=== PATIENT | male | born 1970 | race Caucasian/White ===

== ENCOUNTER 2022-08-22 11:26 | Emergency (ER) | payer MEDICAID, OTHER ==
[2022-08-22 12:06] LABS: #Basophils 0.1 10x3/uL (0.0-0.2); #Eosinphils 0.5 10x3/uL (0.0-0.5); #Monocytes 0.8 10x3/uL (0.0-1.1); #Neutrophils 3.4 10x3/uL (1.5-8.4); %Basophils 1.8 % (0.0-2.0); %Eosinophils 6.6 % (0.0-6.0); %Lymphocytes 33.2 % (18.0-47.0); %Monocytes 11.4 % (0.0-10.0); %Neutrophils 46.3 % (40.0-75.0); Hemoglobin 12.3 g/dL (13.5-17.5); Mean Corpuscular HGB CONC 33.7 g/dL (32.0-36.0); Mean Corpuscular Hemoglobin 31.7 pg (27.0-33.0); Mean Corpuscular Volume 94.1 fl (81.2-95.1); Mean Platelet Volume 8.5 fl (7.4-10.4); Platelet Count 243 10x3/uL (150-450); Red Blood Cell (RBC) Count 3.88 10x6/uL (4.32-5.72); White Blood Cell (WBC) Count 7.3 10x3/uL (3.5-10.5)
[2022-08-22 12:27] LABS: ALT (SGPT) 42 U/L (8-55); AST (SGOT) 25 U/L (5-34); Albumin 4.3 g/dL (3.5-5.0); Alkaline Phosphatase 101 U/L (40-110); Anion Gap 13 mmol/L (10-20); BUN (Urea Nitrogen) 12 mg/dL (8.4-25.7); Bilirubin, Total 0.3 mg/dL (0.2-1.2); Calc. Creatinine Clearance 0 mL/min (70-130); Calcium 9.6 mg/dL (7.8-10.44); Carbon Dioxide 25 mmol/L (22-29); Chloride 99 mmol/L (98-107); Estimated GFR 91; Globulin 3.2 g/dL (2.4-3.5); Glucose 145 mg/dL (70-105); Lipase 36 U/L (8-78); Potassium 4.2 mmol/L (3.5-5.1); Protein, Total 7.5 g/dL (6.0-8.3); Sodium 133 mmol/L (136-145)
== END 2022-08-22 14:48 | disposition home or self-care (01) ==
LOC: CSHERS 11:26
DX: K59.00 Constipation, unspecified (principal); I73.9 Peripheral vascular disease, unspecified; I10 Essential (primary) hypertension; Z86.73 Personal history of transient ischemic attack (TIA), and cerebral infarction without residual deficits; Z87.891 Personal history of nicotine dependence; Z79.899 Other long term (current) drug therapy; Z79.82 Long term (current) use of aspirin
CPT/HCPCS: 71045; 74177; 80053; 83690; 85025

== ENCOUNTER 2022-11-28 07:05 | Day surgery (SDC) | payer OTHER ==
[2022-11-27 10:57] VITALS: BMI 30.8
[2022-11-28] MEDS ORDERED: PROPOFOL 40 ML ONE (09:00)
[2022-11-28] MEDS ORDERED: Lidocaine 1% PF 5 ML VIAL ONE (09:00)
[2022-11-28] MEDS ORDERED: PROPOFOL 20 ML ONE (09:35)
== END 2022-11-28 11:01 | disposition home or self-care (01) ==
LOC: CSHSDC 07:05
PROVIDERS: ATTEND Internal Medicine Gastroenterology
PROC: 0DBP8ZZ Excision of Rectum, Via Natural or Artificial Opening Endoscopic (ICD-10-PCS; principal; 2022-11-28)
PROC: 0DBN8ZX Excision of Sigmoid Colon, Via Natural or Artificial Opening Endoscopic, Diagnostic (ICD-10-PCS; principal; 2022-11-28)
DX: K63.5 Polyp of colon (principal); K59.00 Constipation, unspecified; K63.3 Ulcer of intestine; F17.210 Nicotine dependence, cigarettes, uncomplicated; I10 Essential (primary) hypertension; E11.9 Type 2 diabetes mellitus without complications; E78.5 Hyperlipidemia, unspecified; Z90.49 Acquired absence of other specified parts of digestive tract; Z88.0 Allergy status to penicillin; Z79.899 Other long term (current) drug therapy; Z87.891 Personal history of nicotine dependence
CPT/HCPCS: 88305; J2704

== ENCOUNTER 2022-12-03 13:15 | Outpatient (CLI) | payer OTHER | END 2022-12-03 13:16 | disposition home or self-care (01) | LOC: CSHWCC 13:15 | PROVIDERS: ATTEND Nurse Practitioner Family | DX: I87.312 Chronic venous hypertension (idiopathic) with ulcer of left lower extremity (principal); L97.822 Non-pressure chronic ulcer of other part of left lower leg with fat layer exposed; R60.0 Localized edema | CPT/HCPCS: 87070; 87077; 87186; 87205; 97597; 99203; G0463 ==

== ENCOUNTER 2022-12-17 13:35 | Outpatient (CLI) | payer OTHER | END 2022-12-17 13:36 | disposition home or self-care (01) | LOC: CSHWCC 13:35 | PROVIDERS: ATTEND Nurse Practitioner Family | DX: R60.0 Localized edema (principal); I87.312 Chronic venous hypertension (idiopathic) with ulcer of left lower extremity; L97.822 Non-pressure chronic ulcer of other part of left lower leg with fat layer exposed | CPT/HCPCS: 97597; 99213; G0463 ==

== ENCOUNTER 2023-01-09 12:59 | Outpatient (CLI) | payer OTHER | END 2023-01-09 13:00 | disposition home or self-care (01) | LOC: CSHWCC 12:59 | PROVIDERS: ATTEND Nurse Practitioner Family | DX: R60.0 Localized edema (principal); I87.312 Chronic venous hypertension (idiopathic) with ulcer of left lower extremity; L97.822 Non-pressure chronic ulcer of other part of left lower leg with fat layer exposed | CPT/HCPCS: 99213; G0463 ==

== ENCOUNTER 2023-01-14 12:14 | Outpatient (CLI) | payer OTHER ==
[~2023-01-14 12:14] MED LIST: Magnevist 469MG/ML 20 ML VIAL ONE
== END 2023-01-14 12:15 | disposition home or self-care (01) ==
LOC: CSHMRI 12:14
PROVIDERS: ATTEND Psychiatry & Neurology Neurology
DX: G37.9 Demyelinating disease of central nervous system, unspecified (principal); Z98.890 Other specified postprocedural states; M47.812 Spondylosis without myelopathy or radiculopathy, cervical region; R90.82 White matter disease, unspecified
CPT/HCPCS: 70553; 72156

== ENCOUNTER 2023-01-20 09:01 | Emergency (ER) | payer OTHER ==
[2023-01-20] MEDS ORDERED: Prochlorperazine 10 MG/2 ML VIAL ONE (10:09)
[2023-01-20] MEDS ORDERED: Ketorolac Tromethamine 30 MG/ML VIAL ONE (10:09)
== END 2023-01-20 12:03 | disposition home or self-care (01) ==
LOC: CSHERS 09:01
DX: R51.9 Headache, unspecified (principal); F17.290 Nicotine dependence, other tobacco product, uncomplicated; I10 Essential (primary) hypertension; Z79.899 Other long term (current) drug therapy; E11.9 Type 2 diabetes mellitus without complications; Z79.84 Long term (current) use of oral hypoglycemic drugs; Z79.82 Long term (current) use of aspirin; Z86.73 Personal history of transient ischemic attack (TIA), and cerebral infarction without residual deficits
CPT/HCPCS: 96361; 96374; 96375; J0780; J1885

== ENCOUNTER 2023-02-17 09:15 | Outpatient (CLI) | payer OTHER ==
[2023-02-17] MEDS ORDERED: Magnevist 469MG/ML 20 ML VIAL ONE (10:12)
== END 2023-02-17 09:16 | disposition home or self-care (01) ==
LOC: CSHMRI 09:15
PROVIDERS: ATTEND Psychiatry & Neurology Neurology
DX: G37.9 Demyelinating disease of central nervous system, unspecified (principal); M47.814 Spondylosis without myelopathy or radiculopathy, thoracic region
CPT/HCPCS: 72157

== ENCOUNTER 2023-07-16 13:05 | Outpatient (CLI) | payer OTHER | END 2023-07-16 13:06 | disposition home or self-care (01) | LOC: CSHMRI 13:05 | PROVIDERS: ATTEND Neurological Surgery | DX: M47.816 Spondylosis without myelopathy or radiculopathy, lumbar region (principal); M43.16 Spondylolisthesis, lumbar region; M48.061 Spinal stenosis, lumbar region without neurogenic claudication; I71.40 Abdominal aortic aneurysm, without rupture, unspecified | CPT/HCPCS: 72158 ==

== ENCOUNTER 2023-12-02 13:56 | Outpatient (CLI) | payer OTHER | END 2023-12-02 13:57 | disposition home or self-care (01) | LOC: CSHRAD 13:56 | PROVIDERS: ATTEND Psychiatry & Neurology Neurology | DX: G95.89 Other specified diseases of spinal cord (principal); M48.02 Spinal stenosis, cervical region | CPT/HCPCS: 72141 ==

== ENCOUNTER 2024-03-16 13:35 | Outpatient (CLI) | payer OTHER | END 2024-03-16 13:36 | disposition home or self-care (01) | LOC: CSHULT 13:35 | PROVIDERS: ATTEND Internal Medicine Interventional Cardiology | DX: I67.9 Cerebrovascular disease, unspecified (principal); I71.40 Abdominal aortic aneurysm, without rupture, unspecified; I65.23 Occlusion and stenosis of bilateral carotid arteries | CPT/HCPCS: 93306; 93880 ==

== ENCOUNTER 2024-03-18 10:18 | Outpatient (CLI) | payer OTHER | END 2024-03-18 10:19 | disposition home or self-care (01) | LOC: CSHULT 10:18 | PROVIDERS: ATTEND Internal Medicine Interventional Cardiology | DX: I67.9 Cerebrovascular disease, unspecified (principal); I71.40 Abdominal aortic aneurysm, without rupture, unspecified | CPT/HCPCS: 76775 ==

== ENCOUNTER 2025-01-13 08:26 | Outpatient (CLI) | payer MEDICAID | END 2025-01-13 08:27 | disposition home or self-care (01) | LOC: CSHCT 08:26 | PROVIDERS: ATTEND Nurse Practitioner Family | DX: W19.XXXA Unspecified fall, initial encounter (principal); Z01.89 Encounter for other specified special examinations | CPT/HCPCS: 70450 ==

== ENCOUNTER 2025-02-20 08:24 | Outpatient (CLI) | payer MEDICAID | END 2025-02-20 08:25 | disposition home or self-care (01) | LOC: CSHULT 08:24 | PROVIDERS: ATTEND Nurse Practitioner Family | DX: R33.9 Retention of urine, unspecified (principal) | CPT/HCPCS: 76856 ==